=== PATIENT | male | born 1985 | race Hispanic/Latino ===

== ENCOUNTER → 2021-06-18 | Day surgery (SDC) | payer OTHER ==
[~2021-06-18] MED LIST: LIDOCAINE HCL 2% LOCAL INJ 5 ML SDV VIAL INJ ONE; PANTOPRAZOLE PO; PROPOFOL IV EMULSION 10 MG/ML 20 ML VIAL ONE
[2021-06-18 10:10] VITALS: BP 128/70
== END | disposition home or self-care (01) ==
LOC: OR 08:08
PROVIDERS: ATTEND Internal Medicine Gastroenterology
DX: R13.10 Dysphagia, unspecified (principal); K29.70 Gastritis, unspecified, without bleeding; K21.9 Gastro-esophageal reflux disease without esophagitis; Z68.34 Body mass index [BMI] 34.0-34.9, adult
CPT/HCPCS: 43239; J2001; U0002